=== PATIENT | female | born 1990 | race Caucasian/White ===

== ENCOUNTER 2016-09-28 17:13 | Emergency (ER) | payer SELFPAY ==
[~2016-09-28] VITALS: Ht 162.6 cm; Wt 60.0 kg
[2016-09-28 17:18] VITALS: BP 142/72; PULSE 76; RESP 17; TEMP 98.1; O2SAT 98
== END 2016-09-28 20:04 | disposition left against medical advice (07) ==
LOC: NED 17:13
DX: Z53.21 Procedure and treatment not carried out due to patient leaving prior to being seen by health care provider (principal)
CPT/HCPCS: 99281

== ENCOUNTER 2016-10-09 13:46 | Emergency (ER) | payer SELFPAY ==
[~2016-10-09] VITALS: Ht 160 cm; Wt 56.5 kg
[2016-10-09 13:48] VITALS: BP 115/57; PULSE 79; RESP 18; TEMP 98.3; O2SAT 98
[2016-10-09] MEDS ORDERED: BACT800T5 PO (14:56)
--- NOTE | 2016-10-09 15:21 | PD ---
HPI Chief Complaint: General Weakness Time Seen by Provider: 15:21 Travel History International Travel<30 days: No Contact w/Intl Traveler<30days: No Traveled to known affect area: No History of Present Illness HPI 26-year-old female presents to the emergency Department with complaint of a swollen episode to her left mandible and right posterior neck 2 weeks. She was seen at [facility] 2 times prior to here and was given amoxicillin for 10 days which she finished 2 days ago and she is currently taking Bactrim which she has 2 days left. He was told after she had an abscess and then at the second visit they did an ultrasound and said that she had swollen lymph nodes. Today she has been feeling lethargic, weak, and tired. She denies fever, chills , nausea, vomiting. Denies Sore throat. Reports an area to her right anterior neck that is tender and feels like it is becoming swollen too. Denies upper respiratory symptoms. Reports good appetite and fluid intake. Denies illicit drug use or alcohol use. Last menstrual period was approximately 2 years ago; she last Depo-Provera injection in April. No known allergies. No established primary care provider. Denies significant past medical history. PFSH Past Medical History Medical History: Denies Significant Hx Diminished Hearing: Yes (GLASSES ) Immunizations Current: No Tetanus Vaccination: Unknown Influenza Vaccination: No ?: Not LMP: 14 MONTHS AGO : 0 Para: 0 Miscarriage: 0 : 0 Past Surgical History Surgical History: No Previous Surgery Social History Alcohol Use: Yes (SOCIALLY ) Tobacco Use: No Substance Use: No Allergies-Medications (Allergen,Severity, Reaction): Coded Allergies: No Known Allergies (Verified , 10/09/16) Reported Meds & Prescriptions Reported Meds & Active Scripts Active Ibuprofen 800 Mg Tab 800 Mg PO Q6HR PRN Reported Bactrim DS (Sulfamethoxazole-Trimethoprim) 800-160 Mg Tab 1 Tab PO BID Review of Systems Except as stated in HPI: all other systems reviewed are Neg Physical Exam Narrative GENERAL: Well-nourished, well-developed occasion female patient, in no acute distress; appears tired; afebrile, nontoxic-appearing SKIN: Warm and dry. No rash. Left mandible with tender, firm, palpable lump; areas without erythema, edema. Right posterior cervical lymph node with tenderness on palpation; without erythema, edema. HEAD: Atraumatic. Normocephalic. EYES: Pupils equal and round at 3 mm with brisk reaction. No scleral icterus. No injection or drainage. PERRLA. ENT: Mucosa pink and moist. No erythema or exudates. No uvular edema. No uvular , palatal, or tonsillar deviation. Airway patent. EARS: Bilateral pinnae and external canals appear within normal limits. Bilateral tympanic membranes without erythema, dullness or perforation. NECK: Trachea midline. Right anterior cervical lymphadenopathy with tenderness on palpation. CARDIOVASCULAR: Regular rate and rhythm. No murmur appreciated. RESPIRATORY: No accessory muscle use. Clear to auscultation. Breath sounds equal bilaterally. GASTROINTESTINAL: Abdomen soft, non-tender, nondistended. Hepatic and splenic margins not palpable. Bowel sounds are active 4 quadrants. MUSCULOSKELETAL: No obvious deformities. No clubbing. No cyanosis. No edema. NEUROLOGICAL: Awake and alert. Oriented 3. No obvious cranial nerve deficits. Motor grossly within normal limits. Normal speech. Moves all extremities. 5/5 strength to all extremities. PSYCHIATRIC: Appropriate mood and affect; insight and judgment normal. Data Data Last Documented VS Vital Signs Date Time Temp Pulse Resp B/P Pulse Ox O2 Delivery O2 Flow Rate FiO2 10/09/16 18:05 98 10/09/16 13:48 98.3 79 18 115/57 Orders Basic Metabolic Panel (Bmp) (10/09/16 15:23) Complete Blood Count With Diff (10/09/16 15:23) Iv Access Insert/Monitor (10/09/16 15:23) Ecg Monitoring (10/09/16 15:23) Oximetry (10/09/16 15:23) Monoscreen (10/09/16 15:23) Mandatory Outpatient Referral (10/09/16 16:49) Labs Laboratory Tests Test 10/09/16 15:45 White Blood Count 6.6 TH/MM3 Red Blood Count 3.90 MIL/MM3 Hemoglobin 10.9 GM/DL Hematocrit 33.1 % Mean Corpuscular Volume 85.1 FL Mean Corpuscular Hemoglobin 27.9 PG Mean Corpuscular Hemoglobin 32.8 % Concent Red Cell Distribution Width 14.0 % Platelet Count 211 TH/MM3 Mean Platelet Volume 9.3 FL Neutrophils (%) (Auto) 39.5 % Lymphocytes (%) (Auto) 44.0 % Monocytes (%) (Auto) 9.0 % Eosinophils (%) (Auto) 6.7 % Basophils (%) (Auto) 0.8 % Neutrophils # (Auto) 2.6 TH/MM3 Lymphocytes # (Auto) 2.9 TH/MM3 Monocytes # (Auto) 0.6 TH/MM3 Eosinophils # (Auto) 0.4 TH/MM3 Basophils # (Auto) 0.1 TH/MM3 CBC Comment DIFF FINAL Differential Comment Sodium Level 141 MEQ/L Potassium Level 4.2 MEQ/L Chloride Level 108 MEQ/L Carbon Dioxide Level 26.0 MEQ/L Anion Gap 7 MEQ/L Blood Urea Nitrogen 18 MG/DL Creatinine 0.87 MG/DL Estimat Glomerular Filtration 80 ML/MIN Rate Random Glucose 88 MG/DL Calcium Level 8.3 MG/DL Monoscreen NEG MDM Medical Decision Making Medical Screen Exam Complete: Yes Emergency Medical Condition: Yes Medical Record Reviewed: Yes Differential Diagnosis lymphoma, mononucleosis, lymphadenopathy, infection Narrative Course 26-year-old female with swollen lymph nodes to her left mandible and right posterior neck. The patient appears tired on exam. CBC, BMP, mono screen ordered. 1623: Hemoglobin 10.9. BMP unremarkable. Patient was negative for mono. Dr. Rodriguez ordered an outpatient follow-up to primary care for biopsy of lymph nodes. This was discussed with the patient and I instructed her to follow up outpatient and she verbalized understanding and agreement. Ibuprofen prescribed for home. Patient verbalizes understanding and agreement with treatment plan. Patient is medically cleared and stable for discharge. Discussed reasons to return to the emergency department. Instructed patient to follow up with primary care provider. Patient agrees with treatment plan. The patients vital signs are stable and the patient is stable for outpatient follow-up and treatment. Patient discharged home, stable and in no acute distress. Diagnosis Primary Impression: Lymphadenopathy of head and neck Referrals: Primary Care Physician Patient Instructions: General Instructions, Lymphadenopathy (ED) Departure Forms: Tests/Procedures, Work Release Enter return to work date: Oct 12, 2016 Additional Instructions: Follow-up with primary care provider An outpatient mandatory referral has been placed for biopsy of her lymph nodes Return to the emergency department immediately with worsening of symptoms Med/Other Pt SpecificInfo: Prescription(s) given, No Change to Meds, No Meds Exist/No RX given Scripts Ibuprofen 800 Mg [id number] Mg PO Q6HR PRN (PAIN) #30 TAB Ref 0 Prov:Rassi,Susanna K TRUCK LOADER 10/09/16 Disposition: 01 DISCHARGE HOME Condition: Stable Susanna Sims Oct 09, 2016 15:21
[2016-10-09 16:09] LABS: AUTOMATED NEUTROPHIL # 2.6 TH/MM3 (1.8-7.7); BASOPHIL # 0.1 TH/MM3 (0-0.2); BASOPHIL % 0.8 % (0.0-2.0); EOSINOPHIL # 0.4 TH/MM3 (0-0.4); EOSINOPHIL % 6.7 % (0.0-4.0); HEMATOCRIT 33.1 % (35.0-46.0); HEMO FLAGS DIFF FINAL; LYMPHOCYTE # 2.9 TH/MM3 (1.0-4.8); MEAN CELL VOLUME 85.1 FL (80.0-100.0); MEAN CORPUSCULAR HEMOGLOBIN 27.9 PG (27.0-34.0); MEAN CORPUSCULAR HGB CONC 32.8 % (32.0-36.0); NEUT % 39.5 % (16.0-70.0); PLATELET COUNT 211 TH/MM3 (150-450); WHITE BLOOD COUNT 6.6 TH/MM3 (4.0-11.0)
--- NOTE | 2016-10-09 16:51 | PD ---
Data Data Last Documented VS Vital Signs Date Time Temp Pulse Resp B/P Pulse Ox O2 Delivery O2 Flow Rate FiO2 10/09/16 13:48 98.3 79 18 115/57 98 Orders Basic Metabolic Panel (Bmp) (10/09/16 15:23) Complete Blood Count With Diff (10/09/16 15:23) Iv Access Insert/Monitor (10/09/16 15:23) Ecg Monitoring (10/09/16 15:23) Oximetry (10/09/16 15:23) Monoscreen (10/09/16 15:23) Mandatory Outpatient Referral (10/09/16 16:49) Labs Laboratory Tests Test 10/09/16 15:45 White Blood Count 6.6 TH/MM3 Red Blood Count 3.90 MIL/MM3 Hemoglobin 10.9 GM/DL Hematocrit 33.1 % Mean Corpuscular Volume 85.1 FL Mean Corpuscular Hemoglobin 27.9 PG Mean Corpuscular Hemoglobin 32.8 % Concent Red Cell Distribution Width 14.0 % Platelet Count 211 TH/MM3 Mean Platelet Volume 9.3 FL Neutrophils (%) (Auto) 39.5 % Lymphocytes (%) (Auto) 44.0 % Monocytes (%) (Auto) 9.0 % Eosinophils (%) (Auto) 6.7 % Basophils (%) (Auto) 0.8 % Neutrophils # (Auto) 2.6 TH/MM3 Lymphocytes # (Auto) 2.9 TH/MM3 Monocytes # (Auto) 0.6 TH/MM3 Eosinophils # (Auto) 0.4 TH/MM3 Basophils # (Auto) 0.1 TH/MM3 CBC Comment DIFF FINAL Differential Comment MDM Supervised Visit with SCOTTIE: Yes Narrative Course I, Dr. Rodriguez, have reviewed the advance practice practioner's documentation and am in agreement, met with the patient face to face, made the diagnosis, and the medical decision making was done by me. *My assessment and Findings: 26-year-old previously healthy female here with complaint of lymphadenopathy. She's had approximate 2 weeks of swelling to the left mandibular and right posterior neck lymph nodes. She was seen at [facility] and given amoxicillin and Bactrim which she has been taking without much improvement. She now notes associated fatigue. No documented fevers or chills. Patient does indeed have shotty anterior cervical lymphadenopathy, left submandibular lymphadenopathy and right posterior chain lymphadenopathy which is only minimally tender but not erythematous. Concern for infectious etiology but she is not responding to antibiotics. Differential includes lymphoma, leukemia or other blood dyscrasia. We'll obtain laboratory workup and if negative will discharge to home with outpatient mandatory referral for lymph node biopsy. Nannette Rodriguez MD Oct 09, 2016 16:51
[2016-10-09 16:55] LABS: POTASSIUM 4.2 MEQ/L (3.5-5.1)
[2016-10-09] MEDS ORDERED: IBUP800T23 PO (16:59)
[2016-10-09 18:05] VITALS: O2SAT 98
== END 2016-10-09 18:00 | disposition home or self-care (01) ==
LOC: NEPD 13:46
DX: R59.0 Localized enlarged lymph nodes (principal)
CPT/HCPCS: 80048; 85025; 86308; 99285

== ENCOUNTER 2017-02-23 20:29 | Emergency (ER) | payer SELFPAY ==
[~2017-02-23 20:29] MED LIST: BACT800T5 PO; IBUP800T23 PO
[2017-02-23 20:31] VITALS: BP 126/72; PULSE 104; RESP 16; TEMP 98.4; O2SAT 100
--- NOTE | 2017-02-23 21:43 | PD ---
Physical Exam Date Seen by Provider: Feb 23, 2017 Time Seen by Provider: 21:39 Data Data Last Documented VS Vital Signs Date Time Temp Pulse Resp B/P (MAP) Pulse Ox O2 Delivery O2 Flow Rate FiO2 02/23/17 20:31 98.4 104 16 126/72 (90) 100 MDM Supervised Visit with SCOTTIE: No Narrative Course 26 YO F with complaint sore throat, difficulty swallowing x 2 days. --Fevers, taking Advil today. Last doses ~3 hours ago. Vitals reviewed. Patient seen in triage, awaiting bed placement. Sarah Thurman Feb 23, 2017 21:43
[2017-02-23] MEDS ORDERED: [UNRECOGNIZED DRUG - OTHER] PO (22:40)
[2017-02-23] MEDS ORDERED: AMOX875T PO (23:52)
--- NOTE | 2017-02-23 23:55 | PD ---
HPI Chief Complaint: ENT Complaint Time Seen by Provider: 23:44 Travel History International Travel<30 days: No Contact w/Intl Traveler<30days: No Traveled to known affect area: No History of Present Illness HPI 26-year-old female here with sore throat for 2 days. It hurts to swallow. Her boyfriend has similar symptoms. She's been using [id number] NSAIDs for symptom relief. Denies fevers, chills, myalgias, cough or congestion, rash or recent travel. No other complaints. PFSH Past Medical History Medical History: Denies Significant Hx Diminished Hearing: Yes (GLASSES ) Immunizations Current: No ?: Not : 0 Para: 0 Miscarriage: 0 : 0 Past Surgical History Surgical History: No Previous Surgery Social History Alcohol Use: Yes (SOCIALLY ) Tobacco Use: Yes Substance Use: No Allergies-Medications (Allergen,Severity, Reaction): Coded Allergies: No Known Allergies (Verified , 02/23/17) Reported Meds & Prescriptions Reported Meds & Active Scripts Active Amoxicillin 875 Mg Tab 875 Mg PO BID 10 Days Reported [Spintec Con] 1 Tab PO DAILY Review of Systems Except as stated in HPI: all other systems reviewed are Neg Physical Exam Narrative GENERAL: Well-nourished female in no acute distress SKIN: Warm and dry. HEAD: Atraumatic. Normocephalic. EYES: Pupils equal and round. No scleral icterus. No injection or drainage. ENT: No nasal bleeding or discharge. Mucous membranes pink and moist. Oropharyngeal erythema with exudate. Uvula midline with no mass effect. Voice is not hoarse or muffled, no stridor or drooling. NECK: Trachea midline. No JVD. Mild tender anterior cervical lymphadenopathy. CARDIOVASCULAR: Regular rate and rhythm. No murmur appreciated. RESPIRATORY: No accessory muscle use. Clear to auscultation. Breath sounds equal bilaterally. Data Data Last Documented VS Vital Signs Date Time Temp Pulse Resp B/P (MAP) Pulse Ox O2 Delivery O2 Flow Rate FiO2 02/23/17 20:31 98.4 104 16 126/72 (90) 100 Orders Orders Group A Rapid Strep Screen (02/23/17 23:12) Amoxicillin (Trimox) (02/24/17 00:00) MDM Medical Decision Making Medical Screen Exam Complete: Yes Emergency Medical Condition: Yes Medical Record Reviewed: Yes Differential Diagnosis Exudate pharyngitis, tonsillitis, peritonsillar abscess, infectious mononucleosis, herpangina, epiglottitis, retropharyngeal abscess Narrative Course Examination and history are consistent with exudate pharyngitis and her rapid strep screen confirms that it is streptococcal in nature. She is being started on amoxicillin. Stable for discharge. Diagnosis Primary Impression: Streptococcal pharyngitis Additional Instructions: Antibiotic as prescribed. Tylenol or Motrin for fever/pain per dosing instructions on the bottle. Stay well hydrated and well-nourished. Return for any acutely new or worsening symptoms. Med/Other Pt SpecificInfo: Prescription(s) given Scripts Amoxicillin (Amoxicillin) 875 Mg Tab 875 MG PO BID for Infection for 10 Days, TAB 0 Refills Prov: Analy Singleton DO 02/23/17 Disposition: 01 DISCHARGE HOME Condition: Stable Lance Odonnell Feb 23, 2017 23:55
[2017-02-24] MEDS ORDERED: AMOXICILLIN 875 MG TAB PO ONE
== END 2017-02-24 00:10 | disposition home or self-care (01) ==
LOC: NEPK 20:29
DX: J02.0 Streptococcal pharyngitis (principal)
CPT/HCPCS: 87880; 99283

== ENCOUNTER 2017-07-25 12:13 | Emergency (ER) | payer SELFPAY ==
[2017-07-25 13:17] LABS: BILIRUBIN, URINE NEG (NEG); BLOOD, URINE NEG (NEG); COMMENT (UR) CULT NOT INDICATED; CULTURE IF INDICATED CULT NOT INDICATED; GLUCOSE,URINE NEG (NEG); KETONE, URINE NEG (NEG); MUCUS URINE FEW /lpf (OCC); NITRITE,URINE NEG (NEG); SQUAMOUS EPITHELIAL CELL URINE 2 /hpf (0-5); URINE COLOR YELLOW (YELLW/STRAW); URINE LEUKOCYTE ESTERASE TRACE (NEG)
== END 2017-07-25 14:09 | disposition home or self-care (01) ==
LOC: NEPD 12:13
DX: R30.0 Dysuria (principal); Z72.0 Tobacco use
CPT/HCPCS: 81001; 99283